=== PATIENT | male | born 1980 | race American Indian/Alaskan Native ===

== ENCOUNTER 2019-03-18 23:27 | Emergency (ER) | payer SELFPAY ==
[2019-03-19] MEDS ORDERED: ACETAMINOPHEN 500 MG TAB PO ONE (01:48)
[2019-03-19] MEDS ORDERED: SODIUM CHLORIDE 0.9% 500 ML 500 ML IV ONE ×2 (01:48→04:13)
[2019-03-19] MEDS ORDERED: ALBUTEROL 2.5 MG/3 ML NEBU IH ONE (01:48)
[2019-03-19] MEDS ORDERED: METOCLOPRAMIDE 10 MG/2 ML INJ IV ONE (01:48)
--- NOTE | 2019-03-19 01:51 | Emergency Department Report ---
ED General Adult HPI - General Chief complaint: Dyspnea/Respdistress Stated complaint: SHORTNESS OF BREATH Time Seen by Provider: 03/19/19 01:36 Source: patient, RN notes reviewed Mode of arrival: Ambulatory Limitations: No Limitations - History of Present Illness Initial comments: The patient is a 39-year-old gentleman. This patient is not known to this provider previously. He is visiting from [place]. He has a history of obesity, tobacco use, high cholesterol, and occasional cannabis use. He presents to the ER today with a request for clearance for flight. Approximately 1-1/2 weeks agO, the patient flew from [place] to [place], with a short layover in [place]. While in [place], he reports that one of his cousins got "sick with the flu." This was approximately 4-5 days ago. He reports discussing was hospitalized. He reports that 3 days ago, he developed myalgias, fever, sweats, nausea, vomiting, diarrhea, cough, headache and sh ortness of breath. In the past 24 hours, he's had 2 episodes of clear emesis. In the past one day, there is no diarrhea. The patient was flying back today from [place] to [place], with a layover in [place], when he began to have shortness of breath, and "started to [place] an puff." Apparently, one of the stewardesses on the airplane became concerned, and gave the patient supplemental oxygen. He was thus sent to the emergency room by the airline for clearance for flight. He denies physical pain at this time. He denies urinary symptoms at this time. He does not believe he got a flu shot. -: Gradual, days(s) Consistency: intermittent Improves with: rest, other (oxygen) Worsens with: eating - Related Data Previous Rx's Medication Instructions Recorded Last Taken Type Acetaminophen [Non-Aspirin Extra 500 mg PO Q6HR PRN #30 tablet 03/19/19 Unknown Rx Strength] Anahi Root [Anahi] 250 mg PO QID PRN #30 capsule 03/19/19 Unknown Rx Metoclopramide [Reglan] 10 mg PO QID PRN #30 tablet 03/19/19 Unknown Rx Allergies Allergy/AdvReac Type Severity Reaction Status Date / Time No Known Allergies Allergy Unverified 03/19/19 02:16 ED Review of Systems ROS: Stated complaint: SHORTNESS OF BREATH Other details as noted in HPI Constitutional: chills, fever, malaise, weakness Eyes: denies: eye discharge ENT: congestion Respiratory: cough, SOB at rest Cardiovascular: denies: syncope Gastrointestinal: nausea, vomiting, constipation Genitourinary: denies: dysuria Musculoskeletal: arthralgia, myalgia Skin: denies: lesions Neurological: weakness Psychiatric: anxiety Hematological/Lymphatic: denies: easy bleeding ED Past Medical Hx - Past Medical History Previous Medical History?: Yes Hx Hypertension: Yes Additional medical history: high cholesterol - Surgical History Past Surgical History?: No - Social History Smoking Status: Current Every Day Smoker Substance Use Type: Alcohol, Marijuana - Medications Home Medications: Home Medications Medication Instructions Recorded Confirmed Last Taken Type Acetaminophen [Non-Aspirin Extra 500 mg PO Q6HR PRN #30 tablet 03/19/19 Unknown Rx Strength] Anahi Root [Anahi] 250 mg PO QID PRN #30 capsule 03/19/19 Unknown Rx Metoclopramide [Reglan] 10 mg PO QID PRN #30 tablet 03/19/19 Unknown Rx ED Physical Exam - General Limitations: No Limitations General appearance: alert, in no apparent distress - Head Head exam: Present: atraumatic, normocephalic - Eye Eye exam: Present: normal appearance, EOMI. Absent: nystagmus - ENT ENT exam: Present: normal exam, normal orophraynx, mucous membranes moist, normal external ear exam - Neck Neck exam: Present: normal inspection, full ROM. Absent: tenderness, meningismus - Respiratory Respiratory exam: Present: normal lung sounds bilaterally. Absent: respiratory distress - Cardiovascular Cardiovascular Exam: Present: regular rate, normal rhythm, normal heart sounds. Absent: bradycardia, tachycardia, irregular rhythm, systolic murmur, diastolic murmur, rubs, gallop - GI/Abdominal GI/Abdominal exam: Present: soft. Absent: distended, tenderness, guarding, rebound, rigid, pulsatile mass - Rectal Rectal exam: Present: deferred - Extremities Exam Extremities exam: Present: normal inspection, full ROM, other (2+ pulses noted i n the bilateral upper and lower extremities. The pelvis is stable. There is no long bony tenderness. The muscular compartments are soft. There is no redness, pus, streaking or erythema.). Absent: pedal edema, joint swelling, calf tenderness - Back Exam Back exam: Present: normal inspection. Absent: tenderness, CVA tenderness (R), CVA tenderness (L), paraspinal tenderness, vertebral tenderness - Neurological Exam Neurological exam: Present: alert, normal gait, other (there is no facial droop. The tongue is midline. Extraocular movements are intact bilaterally. Speaking in full sentences. Hearing is grossly intact. 5 out of 5 strength bilateral upper and lower extremities. Sensation is intact to light touch bilateral upper and lower extremities.). Absent: motor sensory deficit - Psychiatric Psychiatric exam: Present: anxious - Skin Skin exam: Present: warm, dry, intact, normal color. Absent: rash ED Course Vital Signs 03/18/19 03/19/19 03/19/19 23:37 02:26 03:08 Temperature 99.3 F Pulse Rate 94 H Pulse Rate [ 77 Anterior Throughout] Respiratory 18 19 Rate Respiratory 20 Rate [Anterior Throughout] Respiratory 20 Rate [Anterior] Blood Pressure 122/57 O2 Sat by Pulse 96 Oximetry 03/19/19 03/19/19 03/19/19 03:26 04:00 05:00 Temperature Pulse Rate Pulse Rate [ Anterior Throughout] Respiratory 16 12 15 Rate Respiratory Rate [Anterior Throughout] Respiratory Rate [Anterior] Blood Pressure 110/80 154/76 O2 Sat by Pulse 99 92 Oximetry - Reevaluation(s) Reevaluation #1: 03/19/19 02:23 Differential diagnosis, including but not limited to: Influenza, pneumonia, viral syndrome, gastroenteritis, pneumonia, pulmonary embolism Assessment and plan: 39-year-old gentleman sent to the emergency room for medical clearance for flight, after becoming short of breath while on a plane, requiring supplemental oxygen, with additional symptoms, including nausea, vomiting, diarrhea, myalgias, subjective fever, headache and chills. Suspect influenza-like illness. There are no meningeal signs. The patient is afebrile with reassuring vital signs and has a benign physical examination. He is not tachycardic, tachypneic, or hypoxic. I have explicitly explained to the patient that we can ascertain whether or not an emergency medical condition is present here in the emergency room, but we are not able to provide clearance for flight. Patient endorses understanding, and has consented to emergent medical evaluation. Plan is to treat symptoms, check basic laboratory studies, EKG, x-ray of the [address], and reassess. Reevaluation #2: 03/19/19 02:41 xr chest within normal limits Reevaluation #3: 03/19/19 04:19 Laboratory studies show elevated d-dimer, acute renal insufficiency, and metabolic acidosis. Suspect viral syndrome, leading to nausea, vomiting, diarrhea, leading to vasomotor nephropathy and dehydration. Extensive discussion had with patient and family regarding significance of findings. We have strongly recommended admission to the hospital for medical optimization further evaluation of acute renal insufficiency. The patient is refusing, but is amenable to nuclear medicine study. The patient understands and he will be discharged AGAINST MEDICAL ADVICE. The risks of leaving, including , disability, paralysis, loss of quality of life, permanent kidney failure are discussed with patient, and friends/family, all of whom verbalized understanding. Patient is alert and oriented 3, clinically sober, and free from distracting injury. He exhibits decision-making capacity at this time. Reevaluation #4: 03/19/19 05:22 Nuclear medicine studies pending at this time. No active vomiting. Care will be transferred to the oncoming physician, Dr. Gallardo, to follow-up on nuclear medicine study. As of now, the patient plans to sign out AGAINST MEDICAL ADVICE. ED Medical Decision Making - Lab Data Result diagrams: 03/19/19 03:24 03/19/19 03:24 Vital Signs 03/18/19 23:37 Temperature 99.3 F Pulse Rate 94 H Respiratory 18 Rate Blood Pressure 122/57 O2 Sat by Pulse 96 Oximetry Vital Signs 03/18/19 03/19/19 03/19/19 23:37 02:26 03:08 Temperature 99.3 F Pulse Rate 94 H Pulse Rate [ 77 Anterior Throughout] Respiratory 18 19 Rate Respiratory 20 Rate [Anterior Throughout] Respiratory 20 Rate [Anterior] Blood Pressure 122/57 O2 Sat by Pulse 96 Oximetry 03/19/19 03:26 Temperature Pulse Rate Pulse Rate [ Anterior Throughout] Respiratory 16 Rate Respiratory Rate [Anterior Throughout] Respiratory Rate [Anterior] Blood Pressure O2 Sat by Pulse Oximetry Lab Results 03/19/19 03/19/19 03/19/19 Range/Units 02:38 03:24 03:24 WBC 4.7 (4.5-11.0) K/mm3 RBC 4.67 (3.65-5.03) M/mm3 Hgb 14.0 (11.8-15.2) gm/dl Hct 42.0 (35.5-45.6) % MCV 90 (84-94) fl MCH 30 (28-32) pg MCHC 33 (32-34) % RDW 13.7 (13.2-15.2) % Plt Count 239 (140-440) K/mm3 PT 14.4 (12.2-14.9) Sec. INR 1.11 (0.87-1.13) D-Dimer 245.89 H (0-234) ng/mlDDU Sodium (137-145) mmol/L Potassium (3.6-5.0) mmol/L Chloride (98-107) mmol/L Carbon Dioxide (22-30) mmol/L Anion Gap mmol/L BUN (9-20) mg/dL Creatinine (0.8-1.5) mg/dL Estimated GFR ml/min BUN/Creatinine Ratio % Glucose (75-100) mg/dL Calcium (8.4-10.2) mg/dL Magnesium (1.7-2.3) mg/dL Total Bilirubin (0.1-1.2) mg/dL AST (5-40) units/L ALT (7-56) units/L Alkaline Phosphatase (35-129) units/L NT-Pro-B Natriuret Pep (0-450) pg/mL Total Protein (6.3-8.2) g/dL Albumin (3.9-5) g/dL Albumin/Globulin Ratio % Lipase (13-60) units/L TSH (0.270-4.200) mlU/mL Urine Bilirubin (Negative) Urine RBC (Auto) (0.0-6.0) /HPF Influenza A (Rapid) Negative (Negative) Influenza B (Rapid) Negative (Negative) 03/19/19 03/19/19 03/19/19 Range/Units 03:24 03:24 03:24 WBC (4.5-11.0) K/mm3 RBC (3.65-5.03) M/mm3 Hgb (11.8-15.2) gm/dl Hct (35.5-45.6) % MCV (84-94) fl MCH (28-32) pg MCHC (32-34) % RDW (13.2-15.2) % Plt Count (140-440) K/mm3 PT (12.2-14.9) Sec. INR (0.87-1.13) D-Dimer (0-234) ng/mlDDU Sodium 130 L (137-145) mmol/L Potassium 3.8 (3.6-5.0) mmol/L Chloride 94.7 L (98-107) mmol/L Carbon Dioxide 16 L (22-30) mmol/L Anion Gap 23 mmol/L BUN 45 H (9-20) mg/dL Creatinine 3.2 H (0.8-1.5) mg/dL Estimated GFR 26 ml/min BUN/Creatinine Ratio 14 % Glucose 93 (75-100) mg/dL Calcium 8.9 (8.4-10.2) mg/dL Magnesium 2.60 H (1.7-2.3) mg/dL Total Bilirubin 0.30 (0.1-1.2) mg/dL AST 51 H (5-40) units/L ALT 51 (7-56) units/L Alkaline Phosphatase 83 (35-129) units/L NT-Pro-B Natriuret Pep 8.81 (0-450) pg/mL Total Protein 7.8 (6.3-8.2) g/dL Albumin 4.1 (3.9-5) g/dL Albumin/Globulin Ratio 1.1 % Lipase 35 (13-60) units/L TSH 2.810 (0.270-4.200) mlU/mL Urine Bilirubin (Negative) Urine RBC (Auto) (0.0-6.0) /HPF Influenza A (Rapid) (Negative) Influenza B (Rapid) (Negative) 03/19/19 Range/Units 03:50 WBC (4.5-11.0) K/mm3 RBC (3.65-5.03) M/mm3 Hgb (11.8-15.2) gm/dl Hct (35.5-45.6) % MCV (84-94) fl MCH (28-32) pg MCHC (32-34) % RDW (13.2-15.2) % Plt Count (140-440) K/mm3 PT (12.2-14.9) Sec. INR (0.87-1.13) D-Dimer (0-234) ng/mlDDU Sodium (137-145) mmol/L Potassium (3.6-5.0) mmol/L Chloride (98-107) mmol/L Carbon Dioxide (22-30) mmol/L Anion Gap mmol/L BUN (9-20) mg/dL Creatinine (0.8-1.5) mg/dL Estimated GFR ml/min BUN/Creatinine Ratio % Glucose (75-100) mg/dL Calcium (8.4-10.2) mg/dL Magnesium (1.7-2.3) mg/dL Total Bilirubin (0.1-1.2) mg/dL AST (5-40) units/L ALT (7-56) units/L Alkaline Phosphatase (35-129) units/L NT-Pro-B Natriuret Pep (0-450) pg/mL Total Protein (6.3-8.2) g/dL Albumin (3.9-5) g/dL Albumin/Globulin Ratio % Lipase (13-60) units/L TSH (0.270-4.200) mlU/mL Urine Bilirubin Neg (Negative) Urine RBC (Auto) 4.0 (0.0-6.0) /HPF Influenza A (Rapid) (Negative) Influenza B (Rapid) (Negative) - EKG Data -: EKG Interpreted by Ut EKG shows normal: sinus rhythm Rate: normal - EKG Data When compared to previous EKG there are: previous EKG unavailable 03/19/19 02:24 There is no prior EKG available for comparison. The EKG shows a sinus rhythm, 81 bpm, normal axis, QTC 438 ms, low voltage in the inferior leads, not consistent with ST elevation myocardial infarction. - Radiology Data Radiology results: pending Critical care attestation.: If time is entered above; I have spent that time in minutes in the direct care of this critically ill patient, excluding procedure time. ED Disposition Clinical Impression: Influenza-like illness, JILLIAN (acute kidney injury), Myositis Disposition: [id number] LEFT AGAINST MED ADVICE Is pt being admited?: No Does the pt Need Aspirin: No Condition: Undetermined Additional Instructions: As we discussed, you have left the hospital/emergency room AGAINST MEDICAL ADVICE. By leaving, you risked , disability, paralysis, permanent loss of quality of life. The ER is open 24 hours a day, 7 days a week. It never closes. Please return to the emergency room right away if and when you change your mind. If you decide not to return to the emergency room, please follow-up with the listed physician referrals as soon as possible. Drink plenty of fluids, do not take Motrin, ibuprofen, Naprosyn, Aleve. Wash hands very thoroughly with soap and water. Take the nausea medication as needed and directed. Follow up with the primary care doctor or kidney doctor as soon as possible. Prescriptions: Anahi Root [Anahi] 250 mg PO QID PRN #30 capsule PRN Reason: Nausea Acetaminophen [Non-Aspirin Extra Strength] 500 mg PO Q6HR PRN #30 tablet PRN Reason: Pain , Severe (7-10) Metoclopramide [Reglan] 10 mg PO QID PRN #30 tablet PRN Reason: Nausea Referrals: SELINA VILLALOBOS MD [Staff Physician] - 3-5 Days NAILA ROBINS MD [Staff Physician] - 3-5 Days [facility] [Provider Group] - 3-5 Days
--- NOTE | 2019-03-19 02:30 | XRay Report ---
CHEST 2 VIEWS INDICATION: sob cough. COMPARISON: none FINDINGS: Support devices: None. Heart: Within normal limits. Lungs: No acute air space or interstitial disease. Pleura: No significant pleural effusion. No pneumothorax. Additional findings: None. IMPRESSION: 1. No acute findings. Signer Name: Tapan Avila MD Signed: 03/19/2019 2:25 AM Workstation Name: [id number]
[2019-03-19 03:40] LABS: Mean Corpuscular HGB Conc 33 % (32-34); Mean Corpuscular Volume 90 fl (84-94); Platelet Count 239 K/mm3 (140-440); Red Blood Count 4.67 M/mm3 (3.65-5.03); Red Cell Distribution Width 13.7 % (13.2-15.2)
[2019-03-19 04:01] LABS: INR 1.11 (0.87-1.13)
[2019-03-19 04:07] LABS: Albumin 4.1 g/dL (3.9-5); Calcium 8.9 mg/dL (8.4-10.2)
[2019-03-19 04:15] LABS: Bilirubin,Urine NEG (Negative); Blood,Urine SM (Negative); Color,Urine Yellow (Yellow); Hyaline Casts,Urine 6 /LPF; Urobilinogen,Urine < 2.0 mg/dL (<2.0)
[2019-03-19] MEDS ORDERED: SODIUM CHLORIDE 0.9% 1000 ML 1,000 ML IV ONE (05:03)
--- NOTE | 2019-03-19 07:00 | Nuclear Medicine Report ---
TECHNICAL DATA: Inhaled administration followed by immediate static images of chest in multiple projections coordin ed with breathing instructions. Followed by immediate static images of chest in multiple projections post I.V. injection. 25.7 millicuries of 133 Xenon is administered by inhalation. Pulmonary wash-in, equilibrium, and washout phases are performed. Then, 5.0 millicuries of 99m Tc MAA is administered intravenously. FINDINGS: Chest imaging study dated 03/19/2019 is compared The ventilation scan is normal without evidence of delayed washout. The perfusion scan demonstrates h omogeneous uptake without evidence of segmental or subsegmental defects. IMPRESSION: Normal lung scan. Signer Name: Tapan Avila MD Signed: 03/19/2019 6:56 AM Workstation Name: [id number]
[2019-03-19 07:28] VITALS: BP 117/58
[2019-03-19 08:38] LABS: Calcium 8.5 mg/dL (8.4-10.2)
--- NOTE | 2019-03-19 08:56 | Event Note ---
Is a 39-year-old male who is from [place] traveling through [place] via flight. Final destination will be [place]. Patient states while in flight became slightly short of breath and required oxygen. Patient states prior to getting on the plane on my [place] he felt like he was catching a cold. Patient states that he had body aches and a fever. Patient does endorse having a sick contact with a recent diagnosis of fluid from his cousin. Patient denies any chest pain and states currently he is not short of breath. Patient states he feels greatly improved after the 3 L of normal saline. Creatinine improved to 2.2. The patient was initially sent to be a patient who leaves AGAINST MEDICAL ADVICE after my examination the patient 8:30 AM accompanied with the patient being discharged under my medical disclosure. This decision was made without speaking to the previous physician and and thus that possibility does not live with that physician.
== END 2019-03-19 08:59 | disposition left against medical advice (07) ==
LOC: ED 23:27
DX: M60.9 Myositis, unspecified (principal); N17.9 Acute kidney failure, unspecified; F17.200 Nicotine dependence, unspecified, uncomplicated; F12.10 Cannabis abuse, uncomplicated; I10 Essential (primary) hypertension; E78.00 Pure hypercholesterolemia, unspecified
CPT/HCPCS: 36415; 71046; 78582; 80048; 80053; 81001; 82550; 83690; 83735; 83880; 84443; 85027; 85379; 85610; 87400; 93005; 93010; 94640; 96361; 96374; 99285; A9540; A9558; J2765; J7030; J7040; 94644